=== PATIENT | male | born 2000 | race Hispanic/Latino ===

== ENCOUNTER 2018-05-05 21:21 | Emergency (ER) | payer OTHER, SELFPAY | END 2018-05-05 22:10 | disposition home or self-care (01) | LOC: MADERS 21:21 | DX: L50.0 Allergic urticaria (principal) | CPT/HCPCS: 96372; J1040 ==

== ENCOUNTER 2019-08-10 22:18 | Emergency (ER) | payer SELFPAY ==
[2019-08-10] MEDS ORDERED: Triple Antibiotic Oint 1 GM Packet ONE (23:36)
[2019-08-10] MEDS ORDERED: Bacitracin 1 PK ONE (23:39)
== END 2019-08-10 23:45 | disposition home or self-care (01) ==
LOC: MADERS 22:18
DX: L60.0 Ingrowing nail (principal)
CPT/HCPCS: 11750

== ENCOUNTER 2020-03-07 11:12 | Emergency (ER) | payer SELFPAY | END 2020-03-07 11:57 | disposition home or self-care (01) | LOC: MADERS 11:12 | DX: L03.032 Cellulitis of left toe (principal); L60.0 Ingrowing nail | CPT/HCPCS: 99283 ==

== ENCOUNTER 2021-01-09 18:15 | Emergency (ER) | payer SELFPAY | END 2021-01-09 19:35 | disposition home or self-care (01) | LOC: MADERS 18:15 | DX: S93.401A Sprain of unspecified ligament of right ankle, initial encounter (principal); F17.210 Nicotine dependence, cigarettes, uncomplicated; W17.2XXA Fall into hole, initial encounter ==

== ENCOUNTER 2022-10-09 15:46 | Emergency (ER) | payer SELFPAY ==
[2022-10-09] MEDS ORDERED: diphenhydrAMINE 25 MG CAP ONE (16:03)
[2022-10-09] MEDS ORDERED: Dexamethasone 4 MG TAB ONE (16:03)
== END 2022-10-09 16:26 | disposition home or self-care (01) ==
LOC: MADERS 15:46
DX: L25.9 Unspecified contact dermatitis, unspecified cause (principal); F17.210 Nicotine dependence, cigarettes, uncomplicated
CPT/HCPCS: 99282; J8540